=== PATIENT | female | born 1950 | race Caucasian/White ===

== ENCOUNTER 2017-01-16 22:51 | Inpatient (IN) | payer MEDICARE, OTHER ==
[~2017-01-16] VITALS: Ht 165.1 cm; Wt 40.9 kg
[2017-01-16] MEDS ORDERED: ASPI-664 PO (22:58)
--- NOTE | 2017-01-16 23:11 | ERA ---
ER Documentation Chief Complaint Date/Time DATE: 01/16/17 TIME: 23:10 Chief Complaint Generalized body pain HPI The patient is a 66-year-old female, presenting to the ER because of generalized body pain for the last 3 weeks. She complains of dyspnea on exertion. she is having physical therapy 3 times a week for the last year due to generalized weakness. She has felt tired and no energy for the last 3 years. She was recently started on Celexa for depression. She has been drinking for the last couple days, last alcoholic beverage was last night. She denies fever, chills, neck pain, chest pain, dyspnea, abdominal pain, vomiting, dysuria, diarrhea. She used to smoke heavily until 2 years ago, drinks moderately Past medical history: COPD on 2 L nasal cannula continuously, depression Past surgical history: Hysterectomy due to uterine and cervical cancer ROS All systems reviewed and are negative except as per history of present illness. Medications Home Meds Reported Medications Aspirin* (Aspirin* EC) 81 Mg Tablet.dr, 81 MG PO DAILY, TAB 01/16/17 Allergies Allergies: Coded Allergies: Opioids - Morphine Analogues (Unverified Allergy, Unknown, 01/16/17) Opioids-Meperidine and Related (Unverified Allergy, Unknown, 01/16/17) Opioids-Methadone and Related (Unverified Allergy, Unknown, 01/16/17) albuterol (Unverified Allergy, Unknown, 01/16/17) Physical Exam Vitals Vital Signs Date Time Temp Pulse Resp B/P Pulse Ox O2 Delivery O2 Flow Rate FiO2 01/17/17 00:53 105 20 122/80 98 Nasal Cannula 2.0 01/16/17 23:00 97.6 110 23 149/83 92 Physical Exam Const: No acute distress. Head: Atraumatic. Eyes: Normal Conjunctiva. ENT: Normal External Ears, Nose and Mouth. Neck: Full range of motion. No meningismus. Resp: Decreased breath sounds bilateral Cardio: Regular but tachycardic Abd: Soft, non distended, normal bowel sounds, non tender. Skin: No petechiae or rashes. Back: No midline or flank tenderness. Ext: No cyanosis, or edema. Neur: Awake and alert. No focal deficit Psych: Normal Mood and Affect. Result Diagram: 01/16/17 2328 01/16/17 0755 Results 24 hrs Laboratory Tests Test 01/16/17 23:28 01/17/17 00:01 01/17/17 00:04 White Blood Count 8.010^3/ul Red Blood Count 3.4010^6/ul Hemoglobin 10.7g/dl Hematocrit 33.1% Mean Corpuscular Volume 97.4fl Mean Corpuscular Hemoglobin 31.5pg Mean Corpuscular Hemoglobin Concent 32.3g/dl Red Cell Distribution Width 12.5% Platelet Count 45976^3/UL Mean Platelet Volume 10.0fl Neutrophils % 85.7% Lymphocytes % 8.7% Monocytes % 5.0% Eosinophils % 0.2% Basophils % 0.2% Nucleated Red Blood Cells % 0.0/100WBC Neutrophils # 6.910^3/ul Lymphocytes # 0.710^3/ul Monocytes # 0.410^3/ul Eosinophils # 0.010^3/ul Basophils # 0.010^3/ul Nucleated Red Blood Cells # 0.010^3/ul Prothrombin Time 12.0Sec Prothrombin Time Ratio 0.9 INR International Normalized Ratio 0.89 Activated Partial Thromboplast Time 46.9Sec D-Dimer 305.27ng/ml D-Dimer Comment Sodium Level 137mmol/L Potassium Level 3.1mmol/L Chloride Level 90mmol/L Carbon Dioxide Level 38mmol/L Anion Gap 12 Blood Urea Nitrogen 19mg/dl Creatinine 0.39mg/dl Glucose Level 134mg/dl Calcium Level 8.1mg/dl Total Bilirubin 0.5mg/dl Direct Bilirubin 0.00mg/dl Indirect Bilirubin 0.5mg/dl Aspartate Amino Transf (AST/SGOT) 28IU/L Alanine Aminotransferase (ALT/SGPT) 19IU/L Alkaline Phosphatase 73IU/L Total Protein 7.1g/dl Albumin 3.8g/dl Globulin 3.30g/dl Albumin/Globulin Ratio 1.15 Lipase 25U/L Ethyl Alcohol Level < 10.0mg/dl Urine Opiates Screen NEGATIVE Urine Barbiturates NEGATIVE Urine Amphetamines Screen NEGATIVE Urine Benzodiazepines Screen NEGATIVE Urine Cocaine Screen NEGATIVE Urine Cannabinoids NEGATIVE Bedside Urine pH (LAB) 7.0 Bedside Urine Protein (LAB) 2+ Bedside Urine Glucose (UA) Negative Bedside Urine Ketones (LAB) Trace Bedside Urine Blood Trace-lysed Bedside Urine Nitrite (LAB) Negative Bedside Urine Leukocyte Esterase (L Negative Current Medications Medications (Trade) Dose Ordered Sig/Zeyad Route PRN Reason Start Time Stop Time Status Last Admin Dose Admin Potassium Chloride 40 meq 40 meq ONCE ONCE PO 01/17/17 01:41 01/17/17 01:42 DC 01/17/17 01:53 Levofloxacin/ Dextrose (Levaquin 750 Mg/ D5W 150 ml (Pmx)) 150 ml @ 100 mls/hr ONCE ONCE IVPB 01/17/17 03:00 01/17/17 04:29 01/17/17 02:50 Methylprednisolone Sodium Succinate (Solu-Medrol) 125 mg ONCE ONCE IV 01/17/17 03:00 01/17/17 03:01 DC 01/17/17 02:50 Procedures/[place] [id number] Radiology Main Line: [phone] DIAGNOSTIC IMAGING REPORT Patient: ASHISH LIVE : 1950 Age: 66 Sex: F MR #: [id number] DOS: 01/16/17 2320 Ordering MD: GAVIN BARAJAS MD Location: E/R Room/Bed: PROCEDURE: XR Chest. CLINICAL INDICATION: Chest pain. Abdominal pain TECHNIQUE: Portable AP upright view of the chest was obtained. COMPARISON: None. FINDINGS: The cardiomediastinal silhouette is within normal limits. The lungs are clear but markedly hyperinflated, the diaphragm flattened. There is no evidence for pleural effusion, pneumothorax or pulmonary vascular congestion. The osseous structures are intact with no evidence for acute abnormality. Calcification of the aortic arch is seen. No free air seen below the diaphragm. RPTAT:HJJR IMPRESSION: 1. Severe hyperinflation of the lungs compatible with chronic obstructive pulmonary disease without evidence of pneumonia. 2. Aortic atherosclerosis is present. Physician Gayatri Date Time Electronically viewed and signed by Physician Gayatri on 01/17/2017 00:44 JR/ CC: GAVIN BARAJAS MD EKG: Read by emergency physician Rate/Rhythm: Sinus tachycardia 105 beats/min QRS, ST, T-waves: No ST elevation, no T inversion, bilateral atrial enlargement, nonspecific ST and T abnormality Impression: Abnormal EKG MEDICAL MAKING DECISION: The patient is a 65-year-old female, presenting with acute COPD exacerbation, acute hypokalemia, generalized weakness of unclear etiology. She was treated with potassium chloride 40 mg p.o. for low potassium , Levaquin IV and Solu-Medrol IV for acute COPD exacerbation The differential diagnoses considered include but are not limited to asthma, COPD, pneumonia, pulmonary embolus, pleural effusion, congestive heart failure. Departure Diagnosis: Primary Impression: COPD exacerbation Additional Impressions: Hypokalemia Anemia Condition: Stable Comments I discussed the findings with the patient. I discussed the patient with the on- call hospitalist Dr. Sanchez who was made aware of the lab, the treatment, the patient condition. The patient is admitted to telemetry at 2:30 AM The patient's blood pressure was elevated (>120/80) but appears stable without evidence of hypertension emergency or urgency. The patient was counseled about the risks of hypertension and urged to pursue outpatient monitoring and therapy within a week with their primary care physician. GAVIN BARAJAS MD Jan 16, 2017 23:11 GAVIN BARAJAS MD Jan 16, 2017 23:11
[2017-01-16 23:55] LABS: ADD SCAN DIFF NO
[2017-01-16 23:56] LABS: BASOPHILS % 0.2 % (0.0-2.0); EOSINOPHILS % 0.2 % (0.0-7.0); HEMATOCRIT 33.1 % (37.0-47.0); HEMOGLOBIN 10.7 g/dl (12.0-16.0); LYMPHOCYTES # 0.7 10^3/ul (0.8-2.9); LYMPHOCYTES % 8.7 % (15.0-51.0); MEAN CORPUSCULAR HEMOGLOBIN 31.5 pg (29.0-33.0); MEAN CORPUSCULAR HGB CONC 32.3 g/dl (32.0-37.0); MEAN CORPUSCULAR VOLUME 97.4 fl (82.0-101.0); MONOCYTE # 0.4 10^3/ul (0.3-0.9); NEUTROPHIL # 6.9 10^3/ul (1.6-7.5); NEUTROPHILS % 85.7 % (39.0-77.0); PLATELET COUNT 232 10^3/UL (140-415); RED CELL DISTRIBUTION WIDTH 12.5 % (11.5-14.5)
[2017-01-17] VITALS (10 sets, daily range): BP systolic 102–112; BP diastolic 59–65; PULSE 90–107; RESP 16–20; Ht 165.1 cm; Wt 40.9 kg
[2017-01-17 00:04] LABS: URINE BLOOD (Dip) POC Trace-lysed (NEGATIVE)
[2017-01-17 00:08] LABS: INR 0.89; PT RATIO 0.9
[2017-01-17 00:11] LABS: ALBUMIN 3.8 g/dl (3.3-4.9); CHLORIDE 90 mmol/L (97-110); SODIUM 137 mmol/L (135-144)
[2017-01-17 00:12] LABS: D-DIMER 305.27 ng/ml (<460); POTASSIUM 3.1 mmol/L (3.5-5.1)
[2017-01-17 00:13] LABS: CREATININE 0.39 mg/dl (0.44-1.00)
[2017-01-17 00:14] LABS: ALANINE AMINOTRANSFERASE 19 IU/L (13-69); ALBUMIN/GLOBULIN RATIO 1.15; ALKALINE PHOSPHATASE 73 IU/L (42-121); ANION GAP 12 (8-16); ASPARTATE AMINO TRANSFERASE 28 IU/L (15-46); BILIRUBIN,INDIRECT 0.5 mg/dl (0-1.1); BILIRUBIN,TOTAL 0.5 mg/dl (0.2-1.3); BLOOD UREA NITROGEN 19 mg/dl (7-20); CALCIUM 8.1 mg/dl (8.4-10.2); CARBON DIOXIDE 38 mmol/L (21-31); GLUCOSE 134 mg/dl (70-220); TOTAL PROTEIN 7.1 g/dl (6.1-8.1)
[2017-01-17 00:17] LABS: ETHANOL < 10.0 mg/dl; PARTIAL THROMBOPLASTIN TIME 46.9 Sec (25.0-35.0)
[2017-01-17 00:39] LABS: BARBITURATES NEGATIVE (NEGATIVE); BENZODIAZEPINES NEGATIVE (NEGATIVE); CANNABINOIDS NEGATIVE (NEGATIVE); COCAINE NEGATIVE (NEGATIVE); OPIATES NEGATIVE (NEGATIVE)
--- NOTE | 2017-01-17 00:45 | RADRPT ---
PROCEDURE: XR Chest. CLINICAL INDICATION: Chest pain. Abdominal pain TECHNIQUE: Portable AP upright view of the chest was obtained. COMPARISON: None. FINDINGS: The cardiomediastinal silhouette is within normal limits. The lungs are clear but markedly hyperinf lated, the diaphragm flattened. There is no evidence for pleural effusion, pneumothorax or pulmonar y vascular congestion. The osseous structures are intact with no evidence for acute abnormality. Ca lcification of the aortic arch is seen. No free air seen below the diaphragm. RPTAT:HJJR IMPRESSION: 1. Severe hyperinflation of the lungs compatible with chronic obstructive pulmonary disease without evidence of pneumonia. 2. Aortic atherosclerosis is present. Physician Gayatri Date Time Electronically viewed and signed by Physician Gayatri on 01/17/2017 00:44 /
[2017-01-17] MEDS ORDERED: POTASSIUM CHLORIDE (SR) 20 MEQ TAB PO ONE (01:41)
[2017-01-17] MEDS ORDERED: METHYLPREDNISOLONE 125 MG INJ IV ONE (03:00)
[2017-01-17] MEDS ORDERED: LEVOFLOXACIN 750MG/D5W (PMX) 150 ML IVPB ONE (03:00)
[2017-01-17] MEDS ORDERED: ONDANSETRON 4 MG INJ ONE (04:22)
[2017-01-17] MEDS ORDERED: LORAZEPAM 0.5 MG TAB PO ONE (04:30)
[2017-01-17] MEDS ORDERED: ACETAMINOPHEN 325 MG TAB PO PRN (04:30)
[2017-01-17] MEDS ORDERED: NACL 0.9% 3 ML SYG IV SCH (04:30)
[2017-01-17] MEDS ORDERED: ONDANSETRON 4 MG INJ IV PRN (04:30)
[2017-01-17] MEDS ORDERED: IPRATROPIUM (NEB) 0.5 MG/2.5 ML AMP HHN PRN (04:30)
[2017-01-17] MEDS ORDERED: ONDANSETRON 4 MG INJ IV ONE (04:35)
[2017-01-17] MEDS: KETOROLAC 30 MG INJ IV SCH ×4 (04:44→22:20)
--- NOTE | 2017-01-17 07:35 | HP ---
DATE OF ADMISSION: 01/17/2017 TIME SEEN: 4:00 a.m. CHIEF COMPLAINT: Generalized body pain and shortness of breath. HISTORY OF PRESENT ILLNESS: The patient is a 66-year-old female with a history of COPD on home oxygen, uterine and cervical cancer at age of 34 status post surgery, and depression who presented to the emergency department with the above stated chief complaint. She stated she has been experiencing generalized weakness and lack of energy for a few years now and actually has been receiving physical therapy a few days a week. She stated her current generalized weakness has been progressively getting worse for the past 2 weeks or so. She also reported shortness of breath worse on exertion. She has a heavy smoking history, but she quit about 2 years ago. She denied any chest pain, fever, chills, nausea, vomiting. she said, 3 years ago she lost significant weight from 110 to 68 and since then her body has been weak. When she presented to the ER, blood pressure was 149/83, heart rate 110, respiratory rate 23, temperature 97.6, oxygen saturation 92% on room air which increased to 98% on 2 liters. Laboratory shows a potassium of 3.1, chloride 90 , bicarbonate 38, hemoglobin 10.7. Otherwise, CBC and CMP are within normal limits. Chest x-ray shows severe hyperinflation of the lungs. The patient received 125 mg of Solu-Medrol, Levaquin and her potassium was replaced. REVIEW OF SYSTEMS: A 12-point review of systems was performed and negative except as mentioned in the HPI. PAST MEDICAL HISTORY: As per HPI. PAST SURGICAL HISTORY: Uterine and cervical surgery for cancer. SOCIAL HISTORY: A history of heavy smoking until 2 years ago. She has been drinking on a daily basis recently especially for the past few days. She denied a history of illicit drug use. ALLERGIES: 1. MORPHINE. 2. MEPERIDINE. 3. METHADONE. 4. ALBUTEROL. PHYSICAL EXAMINATION: VITAL SIGNS: Blood pressure 108/76, heart rate 111, respiratory rate 24, temperature earlier was 97.6, oxygen saturation 94% on 2 liters. GENERAL: very thin, frail looking She is lying in bed without respiratory distress. HEENT: No obvious head deformity. Pupils are reactive to light. Extraocular muscles intact. CARDIOVASCULAR: Tachycardic, regular rhythm. CHEST: Severe Barrel chest with significant anterior chest protruding LUNGS: Scattered wheezing. ABDOMEN: Soft, nontender, nondistended. Positive bowel sounds. EXTREMITIES: No edema. NEUROLOGIC: No focal deficits. LABORATORY DATA: Pertinent positives as mentioned in the HPI. IMAGING: Chest x-ray shows severely hyperinflated lungs. IMPRESSION: 1. Chronic obstructive pulmonary disease exacerbation. 2. Chronic generalized weakness. 3. Hypokalemia. 4. Normocytic anemia, likely anemia of chronic disease. 5. History of uterine and cervical cancer status post surgery. 6. Depression: was started Celexa 2 days ago PLAN: She will receive breathing treatments but notes that she does have an allergy to albuterol. She will also be treated with Solu-Medrol. We will place a pulmonary consult. As far as her generalized weakness is concerned, this has been going on for a few years and currently she has been having physical therapy a few days a week. We will continue physical therapy while she is in the hospital. I will check her thyroid function. I will order a pelvic ultrasound to see if there is any sign of recurrence of her cancer. We will also send ferritin, iron profile as well as an FOBT to workup her anemia. Further workup and management will be per clinical course. Dictated By: DIONISIO NUNO/ALYCE Conf#: [id number] DID#: [id number] JORJE
[2017-01-17] MEDS: ASPIRIN 81 MG TAB PO SCH (08:09)
[2017-01-17] MEDS: HEPARIN 5,000 UNIT/0.5 ML VIAL SC SCH ×2 (08:15→21:09)
[2017-01-17] MEDS ORDERED: MONTELUKAST 10 MG TAB PO ONE (08:30)
[2017-01-17] MEDS ORDERED: METHYLPREDNISOLONE 125 MG INJ IV SCH (09:00)
[2017-01-17 10:42] LABS: ADD SCAN DIFF NO
[2017-01-17] MEDS: MOMETASONE 0.24 GM INHALER INH SCH ×2 (10:49→20:57)
[2017-01-17] MEDS: TIOTROPIUM 18 MCG CAPSULE INHA DEV INH SCH (10:49)
[2017-01-17 10:55] LABS: ABNORMAL IP MESSAGE 1; HEMATOCRIT 33.2 % (37.0-47.0); HEMOGLOBIN 10.4 g/dl (12.0-16.0); MEAN CORPUSCULAR HEMOGLOBIN 30.8 pg (29.0-33.0); MEAN CORPUSCULAR HGB CONC 31.3 g/dl (32.0-37.0); MEAN CORPUSCULAR VOLUME 98.2 fl (82.0-101.0); MEAN PLATELET VOLUME 10.7 fl (7.4-10.4); PLATELET COUNT 236 10^3/UL (140-415); RED BLOOD COUNT 3.38 10^6/ul (4.20-5.40); RED CELL DISTRIBUTION WIDTH 12.5 % (11.5-14.5); WHITE BLOOD COUNT 5.7 10^3/ul (4.8-10.8)
[2017-01-17 11:14] LABS: ALBUMIN 3.8 g/dl (3.3-4.9)
[2017-01-17 11:15] LABS: POTASSIUM 3.7 mmol/L (3.5-5.1)
[2017-01-17 11:17] LABS: ALBUMIN/GLOBULIN RATIO 1.15; BILIRUBIN,INDIRECT 0.4 mg/dl (0-1.1); BILIRUBIN,TOTAL 0.4 mg/dl (0.2-1.3); CREATININE 0.45 mg/dl (0.44-1.00); TOTAL PROTEIN 7.1 g/dl (6.1-8.1)
[2017-01-17 11:18] LABS: CALCIUM 8.3 mg/dl (8.4-10.2); MAGNESIUM 1.4 mg/dl (1.7-2.5)
[2017-01-17] MEDS ORDERED: predniSONE 20 MG TAB PO ONE (12:00)
--- NOTE | 2017-01-17 12:00 | CONS ---
Date/Time of Note Date/Time of Note DATE: 01/17/17 TIME: 11:57 Assessment/Plan Assessment/Plan Additional Assessment/Plan Chest x-ray was reviewed from yesterday which is showing severe emphysematous changes without any acute infiltrates. Assessment recommendations; 1. Patient admitted for generalized weakness with possibly superimposed bronchitis. 2. Advanced COPD. 3. Remote history of uterine cancer. 4. History of anxiety. Discontinue Solu-Medrol. Start the patient on prednisone 10 mg twice daily. Continue current bronchodilator regimen. Obtain a blood gas on 2 L nasal cannula. Consultation Date/Type/Reason Admit Date/Time Jan 17, 2017 at 02:44 Date of Consultation: Jan 17, 2017 Type of Consultation: Pulmonary Reason for Consultation Pulmonary consultations requested for evaluation of COPD. History presenting any; patient is a pleasant 66-year-old white lady who came into the hospital yesterday with complaints of not feeling well for the last several weeks. Patient has been complaining of very mild chest congestion without any associated wheezing any fever or chills. Patient also denies having any chest pain. Does complain of generalized weakness. Past medical history; 1. Patient with a history of severe COPD. 2. Anxiety and depression. 3. History of uterine cancer. 4. Patient does have home oxygen. Medications; were reviewed. Allergies; opioids. Social history; patient quit smoking 2 years ago has a long-standing history of heavy smoking. Family history; patient is , does not have any children. Occupational history; patient used to work in grocery stores. Review of systems; denies any headache, visual changes, sinus symptoms. Any seizures. Denies any dysphagia, sore throat or odynophagia. Denies any chest pain, angina, wheezing. Complains of scant chest congestion. Denies any hemoptysis. Denies any abdominal pain, nausea vomiting. Any melena or hematochezia. Has lost some weight recently. Does complain of dyspnea on exertion. Denies any skin changes any new arthritis symptoms. General exam; elderly lady appears quite emaciated, currently in no distress, awake alert. Exam/Review of Systems Vital Signs Vitals Vital Signs Date Time Temp Pulse Resp B/P Pulse Ox O2 Delivery O2 Flow Rate FiO2 01/17/17 11:29 98.0 102 18 108/65 93 01/17/17 06:15 Nasal Cannula 2.0 Exam HEENT examination; supple neck, no JVD. No lymphadenopathy. Midline trachea. No thyromegaly. Pharynx is clear. Patient is edentulous. Pupils are midsize and reactive to light. Chest examination; diminished but clear breath sound. S1-S2 audible, no murmurs. Regular rhythm. Abdomen examination; soft, scaphoid, no organomegaly. Nontender. Bowel sounds audible. Extremity examination; no peripheral edema. Pulses 1+ bilaterally. No clubbing. ROUTE CLERK examination; cranial nerves are grossly intact, no motor deficit. Results Result Diagram: 01/17/1793901/17/17939 Results 24 hrs Laboratory Tests Test 01/16/17 23:28 01/17/17 00:01 01/17/17 00:04 01/17/17 09:40 White Blood Count 8.0 5.7 # Red Blood Count 3.40 L 3.38 L Hemoglobin 10.7 L 10.4 L Hematocrit 33.1 L 33.2 L Mean Corpuscular Volume 97.4 98.2 Mean Corpuscular Hemoglobin 31.5 30.8 Mean Corpuscular Hemoglobin Concent 32.3 31.3 L Red Cell Distribution Width 12.5 12.5 Platelet Count 232 236 Mean Platelet Volume 10.0 10.7 H Neutrophils % 85.7 H Lymphocytes % 8.7 L Monocytes % 5.0 Eosinophils % 0.2 Basophils % 0.2 Nucleated Red Blood Cells % 0.0 Neutrophils # 6.9 Lymphocytes # 0.7 L Monocytes # 0.4 Eosinophils # 0.0 Basophils # 0.0 Nucleated Red Blood Cells # 0.0 Prothrombin Time 12.0 L Prothrombin Time Ratio 0.9 INR International Normalized Ratio 0.89 Activated Partial Thromboplast Time 46.9 H D-Dimer 305.27 D-Dimer Comment Sodium Level 137 136 Potassium Level 3.1 L 3.7 Chloride Level 90 L 90 L Carbon Dioxide Level 38 H 34 H Anion Gap 12 16 Blood Urea Nitrogen 19 16 Creatinine 0.39 L 0.45 Glucose Level 134 149 Calcium Level 8.1 L 8.3 L Total Bilirubin 0.5 0.4 Direct Bilirubin 0.00 0.00 Indirect Bilirubin 0.5 0.4 Aspartate Amino Transf (AST/SGOT) 28 29 Alanine Aminotransferase (ALT/SGPT) 19 18 Alkaline Phosphatase 73 72 Total Protein 7.1 7.1 Albumin 3.8 3.8 Globulin 3.30 H 3.30 H Albumin/Globulin Ratio 1.15 1.15 Lipase 25 Ethyl Alcohol Level < 10.0 Urine Opiates Screen NEGATIVE Urine Barbiturates NEGATIVE Urine Amphetamines Screen NEGATIVE Urine Benzodiazepines Screen NEGATIVE Urine Cocaine Screen NEGATIVE Urine Cannabinoids NEGATIVE Bedside Urine pH (LAB) 7.0 Bedside Urine Protein (LAB) 2+ H Bedside Urine Glucose (UA) Negative Bedside Urine Ketones (LAB) Trace H Bedside Urine Blood Trace-lysed H Bedside Urine Nitrite (LAB) Negative Bedside Urine Leukocyte Esterase (L Negative Magnesium Level 1.4 L Medications Medications Current Medications Ondansetron HCl (Zofran Inj) 4 mg Q6H PRN IV NAUSEA AND/OR VOMITING; Start at 04:30 Aspirin (Aspirin) 81 mg DAILY PO Last administered on 01/17/17 08:09; Admin Dose 81 MG; Start 01/17/17 at 09:00 Acetaminophen (Tylenol Tab) 650 mg Q6H PRN PO PAIN LEVEL 1-3 OR FEVER; Start at 04:30 Heparin Sodium (Porcine) (Heparin (5000 Units/0.5 ml)) 5,000 unit Q12 SC Last administered on 01/17/17 08:15; Admin Dose 5,000 UNIT; Start 01/17/17 at 09:00 Methylprednisolone Sodium Succinate (Solu-Medrol) 60 mg Q12 IV Last administered on 01/17/17 08:09; Admin Dose 60 MG; Start 01/17/17 at 09:00 Ketorolac Tromethamine (Toradol) 30 mg Q6H IV Last administered on 01/17/17 10 :49; Admin Dose 30 MG; Start 01/17/17 at 04:30; Stop 01/20/17 at 04:29 Tiotropium [place] (Spiriva) 1 inh DAILY INH Last administered on 01/17/17 10: 49; Admin Dose 1 INH; Start 01/17/17 at 09:00 Mometasone Furoate (Asmanex) 1 puff BID INH Last administered on 01/17/17 10: 49; Admin Dose 1 PUFF; Start 01/17/17 at 09:00 Montelukast Sodium (Singulair) 10 mg HS PO ; Start 01/17/17 at 21:00 ITZ COVARRUBIAS Jan 17, 2017 12:00
[2017-01-17 13:08] LABS: LYMPHOCYTES # 0.6 10^3/ul (0.8-2.9); NEUTROPHIL # 4.9 10^3/ul (1.6-7.5)
[2017-01-17 13:09] LABS: PLATELET ESTIMATE PLT APPEAR ADEQUATE
[2017-01-17 15:38] LABS: AADO2 Arterial 33.3 mmHg (7.0-24.0); Allen Test ACCEPTAB; Arterial Base Excess 9.1 mmol/L (-3.0-3); Arterial COHb 0.3 % (0.0-3.0); Arterial Fraction of Oxyhgb 93.8 % (93.0-99.0); Arterial HCO3 37.2 mmol/L (22.0-26.0); Arterial MetHb 0.4 % (0.0-1.5); Arterial Total Hemglobin 11.7 g/dl (12.0-18.0); MODE NASAL CANNULA
--- NOTE | 2017-01-17 17:24 | RADRPT ---
Echocardiogram Report Patient Name: ASHISH LIVE Gender: Female Date: 1950 Study Date: 17-Jan-2017 Spray Applicator: MANDI Location: I Ref. Physician: DIONISIO LORA Quality: Technically Difficult Study Procedures: Transthoracic echocardiogram with 2D, M-Mode, and Doppler examination. Indications: Shortness of breath. 2D/M Mode Doppler Measurement Value Normal Ranges Measurement Value Normal Ranges AoR Diam MM 2.7 cm AV Peak Jean-Pierre 1.1 m/sec ACS MM 1.8 cm AV Peak PG 5.1 mmHg LVIDd 2D 3.5 3.5 - 5.6 cm LVOT Peak Jean-Pierre 0.9 m/sec LVIDs 2D 2.2 2.1 - 4.1 cm LVOT Peak PG 3.2 mmHg LVPWd 2D 0.8 0.6 - 1.1 cm MV E Peak Jean-Pierre 0.6 m/sec IVSd 2D 0.8 0.6 - 1.1 cm MV A Peak Jean-Pierre 0.7 m/sec EDV 2D 49.9 cm3 MV E/A 0.8 ESV 2D 10.7 cm3 MV Decel Time 187 msec LA Dimen 2D 2.4 2.3 - 4.0 cm MV Decel [place] 3 MV E/A 0.8 Findings Left Ventricle: Overall, normal left ventricular systolic function. Not all segments visualized, TDS apicals. Normal left ventricular cavity size. Normal left ventricular wall thickness. Ejection fraction is visually estimated at 6065 %. Tissue Doppler/Mitral Doppler indices are consistent with impaired relaxation (Stage I diastolic dysfunction). E/E`=5. Right Ventricle: Normal right ventricular size. Normal right ventricular systolic function. Left Atrium: The left atrium is normal in size. Right Atrium: The right atrium is normal in size. Atrial Septum: Normal atrial septum. Mitral Valve: Normal appearance of the mitral valve. Mild mitral annular calcification. Trace mitral regurgitation. Aortic Valve: Normal appearance of the aortic valve. No significant aortic stenosis or insufficiency. Tricuspid Valve: Normal appearance of the tricuspid valve. Estimated peak PA systolic pressure 33 mmHg. There is trace to mild tricuspid regurgitation. Pulmonic Valve: Pulmonic valve not well visualized. No obvious evidence of pulmonic regurgitation. Pericardium: Normal pericardium with no significant pericardial effusion. Aorta: Normal aortic root. IVC: Normal size and normal respiratory collapse consistent with normal right atrial pressure. Pulmonary Artery: Not well visualized. Conclusions 1.Overall, normal left ventricular systolic function. Not all segments visualized, TDS apicals. Normal left ventricular cavity size. Normal left ventricular wall thickness. Ejection fraction is visually estimated at 60-65 %. Tissue Doppler/Mitral Doppler indices are consistent with impaired relaxation (Stage I diastolic dysfunction). E/E`=5. 2.Normal appearance of the mitral valve. Mild mitral annular calcification. Trace mitral regurgitation. 3.Normal appearance of the tricuspid valve. Estimated peak PA systolic pressure 33 mmHg. There is trace to mild tricuspid regurgitation. Electronically Signed By: Delon Silverio 17-Jan-2017 17:24:12 -0700 Patient Name: ASHISH LIVE Study Date: 17-Jan-2017 [id number]
[2017-01-17 20:26] LABS: ADD UMIC NO; URINE BILIRUBIN (Dip) NEGATIVE (NEGATIVE); URINE BLOOD (Dip) NEGATIVE (NEGATIVE); URINE COLOR LT. YELLOW (YELLOW); URINE GLUCOSE (Dip) NEGATIVE (NEGATIVE); URINE KETONES (Dip) NEGATIVE (NEGATIVE); URINE LEUKOCYTE ESTERASE (Dip) NEGATIVE (NEGATIVE); URINE NITRITE (Dip) NEGATIVE (NEGATIVE); URINE TOTAL PROTEIN (Dip) NEGATIVE (NEGATIVE); URINE UROBILINOGEN (Dip) 0.2 E.U./dL (0.1-1.0)
[2017-01-17] MEDS ORDERED: MAGNESIUM SULFATE 3 GM in SOD CHLORIDE 0.9% 100 ML IVPB ONE (20:30)
[2017-01-17] MEDS ORDERED: MONTELUKAST 10 MG TAB PO SCH (21:00)
[2017-01-17] MEDS ORDERED: CITALOPRAM 20 MG TAB PO SCH ×2 (21:00)
[2017-01-17] MEDS ORDERED: CITA10TA72 PO (22:29)
[2017-01-18] VITALS (8 sets, daily range): BP systolic 107–138; BP diastolic 53–85; PULSE 78–88; RESP 16–20
[2017-01-18] MEDS: KETOROLAC 30 MG INJ IV SCH ×2 (04:47→10:04)
[2017-01-18 06:49] LABS: ADD SCAN DIFF NO
[2017-01-18 06:57] LABS: BASOPHILS % 0.1 % (0.0-2.0); HEMATOCRIT 33.1 % (37.0-47.0); HEMOGLOBIN 10.4 g/dl (12.0-16.0); LYMPHOCYTES # 1.4 10^3/ul (0.8-2.9); LYMPHOCYTES % 18.9 % (15.0-51.0); MEAN CORPUSCULAR HEMOGLOBIN 30.6 pg (29.0-33.0); MEAN CORPUSCULAR HGB CONC 31.4 g/dl (32.0-37.0); MEAN CORPUSCULAR VOLUME 97.4 fl (82.0-101.0); MEAN PLATELET VOLUME 10.2 fl (7.4-10.4); MONOCYTE # 0.7 10^3/ul (0.3-0.9); MONOCYTES % 9.4 % (0.0-11.0); NEUTROPHIL # 5.4 10^3/ul (1.6-7.5); NEUTROPHILS % 71.3 % (39.0-77.0); PLATELET COUNT 239 10^3/UL (140-415); RED CELL DISTRIBUTION WIDTH 12.2 % (11.5-14.5); WHITE BLOOD COUNT 7.6 10^3/ul (4.8-10.8)
--- NOTE | 2017-01-18 07:04 | PDOCDIS ---
Discharge Instructions DIAGNOSIS Discharge Diagnosis: End-stage COPD; dysthymia CONDITION Patient Condition: Fair HOME CARE INSTRUCTIONS: Special Diet: Regular ACTIVITY: Activity Restrictions: Slowly Increase Activity Do not operate Machinery Do not operate Power Tool FOLLOW UP/APPOINTMENTS Appointments With primary care physician, Dr. Jet Og or Dr. Eduardo in 1-2 weeks ELISEO EDUARDO MD Jan 18, 2017 07:04
[2017-01-18] MEDS ORDERED: MONT10TA24 PO (07:06)
--- NOTE | 2017-01-18 07:11 | PN ---
Date/Time of Note Date/Time of Note DATE: 01/18/17 TIME: 07:08 Assessment/Plan VTE Prophylaxis VTE Prophylaxis Intervention: heparin Lines/Catheters IV [facility]ter [facility]from [facility] [place] [facility] Urinary Cath still in place: No Assessment/Plan Problems: (1) Hypokalemia Status: Resolved Comment: Resolved (2) Anemia Status: Acute Comment: Noted. She is stable and is able to be discharged and followed up as an outpatient. Qualifiers: Anemia type: unspecified type Qualified Code: D64.9 - Anemia, unspecified type (3) COPD exacerbation Status: Acute Comment: This is improved nicely. She is now on more mainstream COPD therapeutics. Is my opinion she is ready to be discharged however I am going to make sure she is tolerating everything of that the pulmonary consult agrees. And for after noon discharge today (4) Mild late onset dysthymic disorder, in partial remission, with anxious distress, with intermittent major depressive episodes, without current episode Status: Chronic Comment: On medication therapy Subjective 24 Hr Interval Summary Free Text/Dictation Patient has improved nicely. Constitutional: no complaints (No fevers chills or sweats) Respiratory: cough, shortness of breath (Baseline shortness of breath persists but is actually improved denies wheezing) Cardiovascular: no complaints Gastrointestinal: no complaints Genitourinary: no complaints Musculoskeletal: neck pain Exam/Review of Systems Vital Signs Vitals Vital Signs Date Time Temp Pulse Resp B/P Pulse Ox O2 Delivery O2 Flow Rate FiO2 01/18/17 06:50 98.2 84 18 107/66 93 01/18/17 02:44 2.0 01/17/17 20:00 Nasal Cannula Intake and Output 01/17/17 01/17/17 01/18/17 15:00 23:00 07:00 Intake Total 400 ml 506 ml Balance 400 ml 506 ml Exam Constitutional: alert, oriented Neck: non-tender, supple Respiratory: diminished breath sounds, wheezing (Wheezing is improved) Cardiovascular: nl pulses, regular rate and rhythm Gastrointestinal: nl liver, spleen, non-tender, soft Results Result Diagram: 01/17/17 0940 01/17/17 0940 Results 24 hrs Laboratory Tests Test 01/17/17 09:40 01/17/17 15:55 White Blood Count 5.7 # Red Blood Count 3.38 L Hemoglobin 10.4 L Hematocrit 33.2 L Mean Corpuscular Volume 98.2 Mean Corpuscular Hemoglobin 30.8 Mean Corpuscular Hemoglobin Concent 31.3 L Red Cell Distribution Width 12.5 Platelet Count 236 Mean Platelet Volume 10.7 H Neutrophils % 86.0 H Band Neutrophils % 2.0 Lymphocytes % 11.0 L Reactive Lymphocytes % 1.0 Monocytes % Neutrophils # 4.9 Lymphocytes # 0.6 L Monocytes # Platelet Estimate PLT APPEAR ADEQUATE Sodium Level 136 Potassium Level 3.7 Chloride Level 90 L Carbon Dioxide Level 34 H Anion Gap 16 Blood Urea Nitrogen 16 Creatinine 0.45 Glucose Level 149 Calcium Level 8.3 L Magnesium Level 1.4 L Total Bilirubin 0.4 Direct Bilirubin 0.00 Indirect Bilirubin 0.4 Aspartate Amino Transf (AST/SGOT) 29 Alanine Aminotransferase (ALT/SGPT) 18 Alkaline Phosphatase 72 Total Protein 7.1 Albumin 3.8 Globulin 3.30 H Albumin/Globulin Ratio 1.15 Random Cortisol 33.3 Urine Color LT. YELLOW Urine Clarity CLEAR Urine pH 6.0 Urine Specific [place] 1.025 Urine Ketones NEGATIVE Urine Nitrite NEGATIVE Urine Bilirubin NEGATIVE Urine Urobilinogen 0.2 E.U./dL Urine Leukocyte Esterase NEGATIVE Urine Hemoglobin NEGATIVE Urine Glucose NEGATIVE Urine Total Protein NEGATIVE Medications Medications Current Medications Ondansetron HCl (Zofran Inj) 4 mg Q6H PRN IV NAUSEA AND/OR VOMITING; Start at 04:30 Aspirin (Aspirin) 81 mg DAILY PO Last administered on 01/17/17 08:09; Admin Dose 81 MG; Start 01/17/17 at 09:00 Acetaminophen (Tylenol Tab) 650 mg Q6H PRN PO PAIN LEVEL 1-3 OR FEVER; Start at 04:30 Heparin Sodium (Porcine) (Heparin (5000 Units/0.5 ml)) 5,000 unit Q12 SC Last administered on 01/17/17 21:09; Admin Dose 5,000 UNIT; Start 01/17/17 at 09:00 Ketorolac Tromethamine (Toradol) 30 mg Q6H IV Last administered on 01/18/17 04 :47; Admin Dose 30 MG; Start 01/17/17 at 04:30; Stop 01/20/17 at 04:29 Tiotropium [place] (Spiriva) 1 inh DAILY INH Last administered on 01/17/17 10: 49; Admin Dose 1 INH; Start 01/17/17 at 09:00 Mometasone Furoate (Asmanex) 1 puff BID INH Last administered on 01/17/17 20: 57; Admin Dose 1 PUFF; Start 01/17/17 at 09:00 Montelukast Sodium (Singulair) 10 mg HS PO Last administered on 01/17/17 20:57 ; Admin Dose 10 MG; Start 01/17/17 at 21:00 Citalopram Hydrobromide (Celexa) 10 mg HS PO Last administered on 01/17/17 20: 57; Admin Dose 10 MG; Start 01/17/17 at 21:00 ELISEO SHORE MD Jan 18, 2017 07:11
[2017-01-18 07:19] LABS: POTASSIUM 4.1 mmol/L (3.5-5.1)
[2017-01-18 07:22] LABS: CREATININE 0.47 mg/dl (0.44-1.00)
[2017-01-18 07:23] LABS: CALCIUM 7.5 mg/dl (8.4-10.2); MAGNESIUM 2.9 mg/dl (1.7-2.5); PHOSPHORUS 2.8 mg/dl (2.5-4.9)
[2017-01-18] MEDS ORDERED: MAGNESIUM HYDROXIDE 30ML CUP PO ONE (07:30)
[2017-01-18] MEDS: ASPIRIN 81 MG TAB PO SCH (08:13)
[2017-01-18] MEDS: HEPARIN 5,000 UNIT/0.5 ML VIAL SC SCH (08:20)
[2017-01-18] MEDS ORDERED: DOCUSATE SODIUM 250 MG CAP PO SCH (09:00)
[2017-01-18] MEDS ORDERED: SALMETEROL/FLUTICASONE 250/50 INHA INH SCH (09:00)
[2017-01-18] MEDS: TIOTROPIUM 18 MCG CAPSULE INHA DEV INH SCH (10:04)
[2017-01-18] MEDS ORDERED: ADV25050 INH (12:14)
--- NOTE | 2017-01-18 12:21 | DS ---
Date/Time of Note Date/Time of Note DATE: 01/18/17 TIME: 12:18 Discharge Summary Admission/Discharge Info Admit Date/Time Jan 17, 2017 at 02:44 Discharge Date/Time 01/18/2017 Final Diagnosis COPD exacerbation; anemia; dysthymia Patient Condition: Fair Consults Pulmonology Procedures EchocardiogramConclusions 1. Overall, normal left ventricular systolic function. Not all segments visualized, TDS apicals. Normal left ventricular cavity size. Normal left ventricular wall thickness. Ejection fraction is visually estimated at 60-65 %. Tissue Doppler/Mitral Doppler indices are consistent with impaired relaxation (Stage I diastolic dysfunction). E/E`=5. 2. Normal appearance of the mitral valve. Mild mitral annular calcification. Trace mitral regurgitation. 3. Normal appearance of the tricuspid valve. Estimated peak PA systolic pressure 33 mmHg. There is trace to mild tricuspid regurgitation. Hx of Present Illness HISTORY OF PRESENT ILLNESS: The patient is a 66-year-old female with a history of COPD on home oxygen, uterine and cervical cancer at age of 34 status post surgery, and depression who presented to the emergency department with the above stated chief complaint. She stated she has been experiencing generalized weakness and lack of energy for a few years now and actually has been receiving physical therapy a few days a week. She stated her current generalized weakness has been progressively getting worse for the past 2 weeks or so. She also reported shortness of breath worse on exertion. She has a heavy smoking history, but she quit about 2 years ago. She denied any chest pain, fever, chills, nausea, vomiting. she said, 3 years ago she lost significant weight from 110 to 68 and since then her body has been weak. When she presented to the ER, blood pressure was 149/83, heart rate 110, respiratory rate 23, temperature 97.6, oxygen saturation 92% on room air which increased to 98% on 2 liters. Laboratory shows a potassium of 3.1, chloride 90 , bicarbonate 38, hemoglobin 10.7. Otherwise, CBC and CMP are within normal limits. Chest x-ray shows severe hyperinflation of the lungs. The patient received 125 mg of Solu-Medrol, Levaquin and her potassium was replaced. Hospital Course 66-year-old female with advanced COPDa pink puffer. She had not been on any type of maintenance medications as an outpatient. She was placed on Spiriva and Advair in the hospital which she tolerated well. She is improved significantly as compared to the time of admission is now stable for discharge. She will follow-up with the outpatient physician in 1 week. Home Meds Active Scripts Salmeterol Xinaf/Fluticasone* (Advair*) 250-50 Diskus Inhaler, 1 INH INH BID for 30 Days, 2 Refills Prov:ELISEO SHORE MD 01/18/17 Reported Medications Citalopram Hydrobromide* (Celexa*) 10 Mg Tablet, 10 MG PO HS, #30 TAB 01/17/17 Aspirin* (Aspirin* EC) 81 Mg Tablet.dr, 81 MG PO DAILY, TAB 01/16/17 Pending Labs Laboratory Tests Test 01/17/17 15:55 01/18/17 06:09 Urine Color LT. YELLOW (YELLOW) Urine Clarity CLEAR (CLEAR) Urine pH 6.0 (5.0-9.0) Urine Specific [place] 1.025 (1.003-1.030) Urine Ketones NEGATIVE (NEGATIVE) Urine Nitrite NEGATIVE (NEGATIVE) Urine Bilirubin NEGATIVE (NEGATIVE) Urine Urobilinogen 0.2 E.U./dL (0.1-1.0) Urine Leukocyte Esterase NEGATIVE (NEGATIVE) Urine Hemoglobin NEGATIVE (NEGATIVE) Urine Glucose NEGATIVE% (NEGATIVE) Urine Total Protein NEGATIVE (NEGATIVE) White Blood Count 7.610^3/ul (4.8-10.8) Red Blood Count 3.4010^6/ul (4.20-5.40) Hemoglobin 10.4g/dl (12.0-16.0) Hematocrit 33.1% (37.0-47.0) Mean Corpuscular Volume 97.4fl (82.0-101.0) Mean Corpuscular Hemoglobin 30.6pg (29.0-33.0) Mean Corpuscular Hemoglobin Concent 31.4g/dl (32.0-37.0) Red Cell Distribution Width 12.2% (11.5-14.5) Platelet Count 53533^3/UL (140-415) Mean Platelet Volume 10.2fl (7.4-10.4) Neutrophils % 71.3% (39.0-77.0) Lymphocytes % 18.9% (15.0-51.0) Monocytes % 9.4% (0.0-11.0) Eosinophils % 0.0% (0.0-7.0) Basophils % 0.1% (0.0-2.0) Nucleated Red Blood Cells % 0.0/100WBC (0.0-0.0) Neutrophils # 5.410^3/ul (1.6-7.5) Lymphocytes # 1.410^3/ul (0.8-2.9) Monocytes # 0.710^3/ul (0.3-0.9) Eosinophils # 0.010^3/ul (0.0-0.5) Basophils # 0.010^3/ul (0.0-0.1) Nucleated Red Blood Cells # 0.010^3/ul (0.0-0.0) Sodium Level 137mmol/L (135-144) Potassium Level 4.1mmol/L (3.5-5.1) Chloride Level 94mmol/L (97-110) Carbon Dioxide Level 39mmol/L (21-31) Anion Gap 8 (8-16) Blood Urea Nitrogen 28mg/dl (7-20) Creatinine 0.47mg/dl (0.44-1.00) Glucose Level 111mg/dl (70-220) Calcium Level 7.5mg/dl (8.4-10.2) Phosphorus Level 2.8mg/dl (2.5-4.9) Magnesium Level 2.9mg/dl (1.7-2.5) ELISEO SHORE MD Jan 18, 2017 12:21
--- NOTE | 2017-01-18 12:37 | CONS ---
Date/Time of Note Date/Time of Note DATE: 01/18/17 TIME: 12:35 Assessment/Plan Assessment/Plan Additional Assessment/Plan Assessment recommendations; 1. Patient admitted for COPD exacerbation and acute bronchitis with interval improvement. 2. Chronic Respiratory failure with compensated respiratory acidosis. 3. Remote history of uterine cancer. Patient can be discharged home I would recommend discharging her on Medrol Dosepak with oral antibiotic either Zithromax or Levaquin for 5 days. Patient is to follow-up with her primary care physician. She does have home oxygen. Patient has tried BiPAP in the past and she told me that she just cannot use it. Consultation Date/Type/Reason Admit Date/Time Jan 17, 2017 at 02:44 Initial Consult Date 01/17/17 Type of Consultation: Pulmonary 24 HR Interval Summary Free Text/Dictation Patient condition is stable. Denies any wheezing, cough, chest pain, sputum production. Any fever, chills. General exam; elderly lady, awake alert currently in no distress. Exam/Review of Systems Vital Signs Vitals Vital Signs Date Time Temp Pulse Resp B/P Pulse Ox O2 Delivery O2 Flow Rate FiO2 01/18/17 12:12 87 01/18/17 11:39 98.4 20 115/60 94 01/18/17 11:11 Nasal Cannula 3.0 Intake and Output 01/17/17 01/17/17 01/18/17 15:00 23:00 07:00 Intake Total 400 ml 506 ml Balance 400 ml 506 ml Exam HEENT exam; supple neck, no JVD. No lymphadenopathy. Midline trachea. No thyromegaly. Patient is edentulous. Chest examination; diminished but clear breath sound bilaterally. No additional. S1-S2 audible, no murmurs. Regular rhythm. Abdomen examination; soft, nondistended. No organomegaly. Bowel sounds audible. Extremity exam is; no peripheral edema. LATHE SET UP OPERATOR examination; no focal deficit. Results Result Diagram: 01/18/17 0609 01/18/17 0609 Results 24 hrs Laboratory Tests Test 01/17/17 15:55 01/18/17 06:09 Urine Color LT. YELLOW Urine Clarity CLEAR Urine pH 6.0 Urine Specific [place] 1.025 Urine Ketones NEGATIVE Urine Nitrite NEGATIVE Urine Bilirubin NEGATIVE Urine Urobilinogen 0.2 E.U./dL Urine Leukocyte Esterase NEGATIVE Urine Hemoglobin NEGATIVE Urine Glucose NEGATIVE Urine Total Protein NEGATIVE White Blood Count 7.6 # Red Blood Count 3.40 L Hemoglobin 10.4 L Hematocrit 33.1 L Mean Corpuscular Volume 97.4 Mean Corpuscular Hemoglobin 30.6 Mean Corpuscular Hemoglobin Concent 31.4 L Red Cell Distribution Width 12.2 Platelet Count 239 Mean Platelet Volume 10.2 Neutrophils % 71.3 Lymphocytes % 18.9 Monocytes % 9.4 Eosinophils % 0.0 Basophils % 0.1 Nucleated Red Blood Cells % 0.0 Neutrophils # 5.4 Lymphocytes # 1.4 Monocytes # 0.7 Eosinophils # 0.0 Basophils # 0.0 Nucleated Red Blood Cells # 0.0 Sodium Level 137 Potassium Level 4.1 Chloride Level 94 L Carbon Dioxide Level 39 H Anion Gap 8 # Blood Urea Nitrogen 28 #H Creatinine 0.47 Glucose Level 111 Calcium Level 7.5 L Phosphorus Level 2.8 Magnesium Level 2.9 #H Medications Medications Current Medications Ondansetron HCl (Zofran Inj) 4 mg Q6H PRN IV NAUSEA AND/OR VOMITING; Start at 04:30 Aspirin (Aspirin) 81 mg DAILY PO Last administered on 01/18/17 08:13; Admin Dose 81 MG; Start 01/17/17 at 09:00 Acetaminophen (Tylenol Tab) 650 mg Q6H PRN PO PAIN LEVEL 1-3 OR FEVER; Start at 04:30 Heparin Sodium (Porcine) (Heparin (5000 Units/0.5 ml)) 5,000 unit Q12 SC Last administered on 01/18/17 08:20; Admin Dose 5,000 UNIT; Start 01/17/17 at 09:00 Ketorolac Tromethamine (Toradol) 30 mg Q6H IV Last administered on 01/18/17 10 :04; Admin Dose 30 MG; Start 01/17/17 at 04:30; Stop 01/20/17 at 04:29 Tiotropium [place] (Spiriva) 1 inh DAILY INH Last administered on 01/18/17 10: 04; Admin Dose 1 INH; Start 01/17/17 at 09:00 Montelukast Sodium (Singulair) 10 mg HS PO Last administered on 01/17/17 20:57 ; Admin Dose 10 MG; Start 01/17/17 at 21:00 Citalopram Hydrobromide (Celexa) 10 mg HS PO Last administered on 01/17/17 20: 57; Admin Dose 10 MG; Start 01/17/17 at 21:00 Salmeterol Xinafoate/ Fluticasone (Advair 250/50 Diskus) 1 inh BID INH Last administered on 01/18/17 10:04; Admin Dose 1 INH; Start 01/18/17 at 09:00 Docusate Sodium (Colace) 250 mg DAILY PO Last administered on 01/18/17 08:13; Admin Dose 250 MG; Start 01/18/17 at 09:00 ITZ COVARRUBIAS Jan 18, 2017 12:37
[2017-01-18] MEDS ORDERED: TIOT18CA INH ×2 (13:57→14:00)
[2017-01-18] MEDS ORDERED: LEVO500S PO (14:03)
[2017-01-18] MEDS ORDERED: MED4DP PO (14:03)
== END 2017-01-18 15:08 | disposition home or self-care (01) | DRG 192 ==
LOC: E/R 22:51 → TEL 01-17 02:44
PROVIDERS: ADMIT Internal Medicine; ATTEND Internal Medicine
DX: J44.1 Chronic obstructive pulmonary disease with (acute) exacerbation (principal); Z99.81 Dependence on supplemental oxygen; Z85.42 Personal history of malignant neoplasm of other parts of uterus; Z85.41 Personal history of malignant neoplasm of cervix uteri; Z90.710 Acquired absence of both cervix and uterus; F32.9 Major depressive disorder, single episode, unspecified; Z87.891 Personal history of nicotine dependence; E87.6 Hypokalemia; D64.9 Anemia, unspecified; Z79.52 Long term (current) use of systemic steroids; F41.9 Anxiety disorder, unspecified; F34.1 Dysthymic disorder; F41.8 Other specified anxiety disorders
CPT/HCPCS: 36415; 36600; 71010; 80048; 80053; 80306; 80307; 81003; 82533; 82803; 83690; 83735; 84100; 85025; 85378; 85610; 85730; 93005; 93306; 96374; 96375; J1644; J1885; J1956; J2405; J2930; J3475; J7512

== ENCOUNTER 2017-08-29 08:18 | Emergency (ER) | payer MEDICARE, OTHER ==
[~2017-08-29] VITALS: Ht 165.1 cm; Wt 45.5 kg
[~2017-08-29 08:18] MED LIST: ADV25050 INH; ASPI-664 PO; CITA10TA72 PO; LEVO500S PO; MED4DP PO; MONT10TA24 PO; TIOT18CA INH
[2017-08-29 08:30] VITALS: Ht 165.1 cm; Wt 45.5 kg
[2017-08-29] MEDS ORDERED: LEVALBUTEROL (NEB) 1.25 MG/0.5 ML AMP INH STA ×2 (08:31→11:17)
[2017-08-29] MEDS ORDERED: IPRATROPIUM (NEB) 0.5 MG/2.5 ML AMP INH STA (08:31)
[2017-08-29] MEDS ORDERED: METHYLPREDNISOLONE 125 MG INJ IV STA (08:31)
[2017-08-29] MEDS ORDERED: MAGNESIUM SULFATE 2 GM/50 ML 50 ML IVPB STA (08:31)
--- NOTE | 2017-08-29 09:09 | RADRPT ---
PROCEDURE: XR Chest. CLINICAL INDICATION: Asthma exacerbation TECHNIQUE: Frontal chest x-ray was obtained. COMPARISON: Chest x-ray January 16, 2017 FINDINGS: There is hyperinflation. No alveolar infiltrate or mass is seen. Heart is not enlarged. Mediastinum is not widened. No hilar mass is present. There is no effusion or pneumothorax. IMPRESSION: Hyperinflation compatible with asthma. No pneumonia. .Andrew Salmon MD, MD Date Time Electronically viewed and signed by .Andrew Salmon MD, on 08/29/2017 09:09 .A/
[2017-08-29 09:20] LABS: BASOPHIL # 0.1 10^3/ul (0.0-0.1); BASOPHILS % 0.5 % (0.0-2.0); EOSINOPHILS % 0.1 % (0.0-7.0); HEMATOCRIT 34.4 % (37.0-47.0); HEMOGLOBIN 11.1 g/dl (12.0-16.0); LYMPHOCYTES % 8.7 % (15.0-51.0); MEAN CORPUSCULAR HEMOGLOBIN 31.4 pg (29.0-33.0); MEAN CORPUSCULAR HGB CONC 32.3 g/dl (32.0-37.0); MEAN CORPUSCULAR VOLUME 97.5 fl (82.0-101.0); MEAN PLATELET VOLUME 9.9 fl (7.4-10.4); MONOCYTE # 0.7 10^3/ul (0.3-0.9); MONOCYTES % 6.4 % (0.0-11.0); NEUTROPHIL # 9.2 10^3/ul (1.6-7.5); NEUTROPHILS % 83.8 % (39.0-77.0); PLATELET COUNT 286 10^3/UL (140-415); RED BLOOD COUNT 3.53 10^6/ul (4.20-5.40); RED CELL DISTRIBUTION WIDTH 12.4 % (11.5-14.5)
[2017-08-29 09:48] LABS: CALCIUM 9.5 mg/dl (8.4-10.2); CREATININE 0.5 mg/dl (0.44-1.00); POTASSIUM 4.1 mmol/L (3.5-5.1)
[2017-08-29] MEDS ORDERED: SOD CHLORIDE 0.9% 500 ML IV STA (11:17)
[2017-08-29] MEDS ORDERED: LORAZEPAM 2 MG INJ IV ONE (11:30)
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
[2017-08-29] MEDS ORDERED: BUDE6HFA INHALATION (12:30)
[2017-08-29] MEDS ORDERED: THEO600T PO (12:31)
[2017-08-29] MEDS ORDERED: CHOL100062 PO (12:32)
[2017-08-29] MEDS ORDERED: LITH300T5 PO (12:34)
[2017-08-29] MEDS ORDERED: TIOT18CA INHALATION (12:35)
[2017-08-29] MEDS ORDERED: MONT10TA24 PO (12:36)
[2017-08-29] MEDS ORDERED: LAMO25TA PO (12:36)
[2017-08-29] MEDS ORDERED: PRED20TA PO (12:48)
[2017-08-29] MEDS ORDERED: LEVO750T25 PO (12:48)
[2017-08-29 13:00] VITALS: BP 139/84; PULSE 133; RESP 20; TEMP 98
== END 2017-08-29 13:55 | disposition home or self-care (01) ==
LOC: E/R 08:18
DX: J44.1 Chronic obstructive pulmonary disease with (acute) exacerbation (principal); Z79.82 Long term (current) use of aspirin; Z87.891 Personal history of nicotine dependence
CPT/HCPCS: 71010; 80048; 85025; 94640; 94644; 96374; 96375; 99285; J2060; J2930; J3475; J7040; 93005

== ENCOUNTER 2017-08-30 04:27 | Inpatient (IN) | payer MEDICARE, OTHER ==
[~2017-08-30] VITALS: Ht 160 cm; Wt 54.4 kg
[~2017-08-30 04:27] MED LIST changes: -ADV25050 INH; +BUDE6HFA INHALATION; +CHOL100062 PO; +LAMO25TA PO; -LEVO500S PO; +LEVO750T25 PO; +LITH300T5 PO; -MED4DP PO; +PRED20TA PO; +THEO600T PO; -TIOT18CA INH; +TIOT18CA INHALATION
[2017-08-30] MEDS ORDERED: LEVALBUTEROL (NEB) 1.25 MG/0.5 ML AMP INH STA (04:39)
[2017-08-30] MEDS ORDERED: SOD CHLORIDE 0.9% 500 ML IV STA (04:39)
[2017-08-30] MEDS ORDERED: METHYLPREDNISOLONE 125 MG INJ IV STA (04:39)
--- NOTE | 2017-08-30 04:58 | RADRPT ---
PROCEDURE: Chest. CLINICAL INDICATION: Shortness of breath. TECHNIQUE: Single frontal view of the chest was obtained. COMPARISON: 08/29/2017. FINDINGS: The cardiac silhouette is within normal limits. The aortic arch is calcified. The lungs are hyperin flated. There is a questionable nodular density within the right upper lobe measuring 1.5 cm. There is no focal consolidation, vascular congestion or pleural effusion. There is no pneumothorax. IMPRESSION: Questionable nodular density within the right upper lobe. Further evaluation by CT is recommended. Hyperinflation. Aortic atherosclerosis. .Bright Zelaya MD, MD Date Time Electronically viewed and signed by .Bright Zelaya MD, MD on 08/30/2017 04:58 .T/
[2017-08-30 05:30] LABS: BASOPHILS % 0.4 % (0.0-2.0); HEMATOCRIT 34.6 % (37.0-47.0); HEMOGLOBIN 11.4 g/dl (12.0-16.0); LYMPHOCYTES # 1.3 10^3/ul (0.8-2.9); MEAN CORPUSCULAR HEMOGLOBIN 31.7 pg (29.0-33.0); MEAN CORPUSCULAR HGB CONC 32.9 g/dl (32.0-37.0); MEAN CORPUSCULAR VOLUME 96.1 fl (82.0-101.0); MEAN PLATELET VOLUME 9.8 fl (7.4-10.4); MONOCYTE # 1.3 10^3/ul (0.3-0.9); MONOCYTES % 12.7 % (0.0-11.0); NEUTROPHIL # 7.8 10^3/ul (1.6-7.5); NEUTROPHILS % 74.5 % (39.0-77.0); PLATELET COUNT 310 10^3/UL (140-415); RED CELL DISTRIBUTION WIDTH 12.4 % (11.5-14.5); WHITE BLOOD COUNT 10.5 10^3/ul (4.8-10.8)
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
[2017-08-30 05:55] LABS: ANION GAP 16 (8-16); BLOOD UREA NITROGEN 14 mg/dl (7-20); CALCIUM 9.9 mg/dl (8.4-10.2); CARBON DIOXIDE 35 mmol/L (21-31); CHLORIDE 96 mmol/L (97-110); CREATININE 0.67 mg/dl (0.44-1.00); GLUCOSE 107 mg/dl (70-220); POTASSIUM 4.6 mmol/L (3.5-5.1); SODIUM 142 mmol/L (135-144)
[2017-08-30] MEDS ORDERED: ONDANSETRON 4 MG INJ IV PRN ×2 (06:00)
[2017-08-30] MEDS ORDERED: IPRATROPIUM (NEB) 0.5 MG/2.5 ML AMP NEB PRN (06:00)
[2017-08-30] MEDS ORDERED: ACETAMINOPHEN 325 MG TAB PO PRN ×2 (06:00)
[2017-08-30] MEDS ORDERED: morphine 2 MG INJ IV PRN (06:00)
[2017-08-30] MEDS ORDERED: NACL 0.9% 3 ML SYG IV SCH (06:00)
[2017-08-30 06:10] LABS: TROPONIN-I < 0.012 ng/ml (0.00-0.12)
--- NOTE | 2017-08-30 07:14 | HP ---
Date/Time of Note Date/Time of Note DATE: 08/30/17 TIME: 07:07 Assessment/Plan VTE Prophylaxis VTE Prophylaxis Intervention: heparin Assessment/Plan Assessment/Plan ASSESSMENT 66-year-old female with a history of COPD on home oxygen, extensive smoking history, uterine and cervical cancer at age of 34 status post surgery, arthritis and depression presents with shortness of breath most likely secondary to COPD exacerbation. PLAN Supplemental oxygen, bronchodilators, steroid CT chest to evaluate for the chest x-ray finding of questionable nodular density that was noted on the right upper lobe Continue home medication with adjustment as needed HPI/ROS Admit Date/Time Admit Date/Time Hx of Present Illness The patient is a 66-year-old female with a history of COPD on home oxygen, uterine and cervical cancer at age of 34 status post surgery, arthritis and depression who presented to the emergency department complaining of shortness of breath. She actually came to our ER yesterday as well for shortness of breath but it seems like she has left without properly evaluated. She said her shortness of breath has been progressively getting worse for the past week or so. She also complains of generalized weakness. She has a heavy smoking history , but she quit about 3 years ago. She was last admitted here in December of this year for generalized weakness and shortness of breath. When she presented to the ER this time, she was tachycardic with a heart rate of 128. Chest x-ray shows a questionable nodular density in the right upper lobe. Labs shows bicarb of 35 and hemoglobin of 11.4 otherwise CBC and BMP within acceptable range. PMH/Family/Social Social History Smoking Status: Former smoker Exam/Review of Systems Vital Signs Vitals Vital Signs Date Time Temp Pulse Resp B/P Pulse Ox O2 Delivery O2 Flow Rate FiO2 08/30/17 05:49 120 30 131/96 Non Rebreather 08/30/17 04:49 3 08/30/17 04:45 95 30 08/30/17 04:36 98.5 Exam Constitutional: alert, oriented Head: atraumatic, normocephalic Eyes: EOMI, PERRL Respiratory: diminished breath sounds Cardiovascular: other (Tachycardic with regular rhythm) Gastrointestinal: soft Extremities: normal pulses Labs Result Diagram: 08/30/1750708/30/17507 Medications Medications Current Medications Lorazepam (Ativan) 0.5 mg Q8H PRN PO ANXIETY; Start 08/30/17 at 06:00 Ondansetron HCl (Zofran Inj) 4 mg Q6H PRN IV NAUSEA AND/OR VOMITING; Start 07/07 at 06:00 Acetaminophen (Tylenol Tab) 650 mg Q6H PRN PO PAIN LEVEL 1-3 OR FEVER; Start 08/30/17 at 06:00 Morphine Sulfate (morphine) 2 mg Q4H PRN IV PAIN LEVEL 7-10; Start 08/30/17 at 06:00 Heparin Sodium (Porcine) (Heparin (5000 Units/0.5 ml)) 5,000 unit Q12 SC ; Start 08/30/17 at 09:00 Aspirin (Halfprin) 81 mg DAILY PO ; Start 08/30/17 at 09:00 Cholecalciferol (Vitamin D) 1,000 unit DAILY PO ; Start 08/30/17 at 09:00 Citalopram Hydrobromide (Celexa) 10 mg HS PO ; Start 08/30/17 at 21:00 Lamotrigine (Lamictal) 25 mg TID PO ; Start 08/30/17 at 09:00 [place] Carbonate ([place] Carbonate) 300 mg QHS PO ; Start 08/30/17 at 21:00 Montelukast Sodium (Singulair) 10 mg QHS PO ; Start 08/30/17 at 21:00 Theophylline (Ilir-Dur) 300 mg BID PO ; Start 08/30/17 at 09:00 Miscellaneous Information 2 puff BID INHALATION ; Start 08/30/17 at 09:00; Status UNV Methylprednisolone Sodium Succinate (Solu-Medrol) 80 mg Q12 IV ; Start at 09:00 Tiotropium [place] (Spiriva) 1 inh DAILY INH ; Start 08/30/17 at 09:00 DIONISIO LORA MD Aug 30, 2017 07:14
[2017-08-30 07:29] LABS: AADO2 Arterial 88.9 mmHg (7.0-24.0); Allen Test ACCEPTAB; Arterial Base Excess 4.6 mmol/L (-3.0-3); Arterial COHb 0.3 % (0.0-3.0); Arterial Fraction of Oxyhgb 91.6 % (93.0-99.0); Arterial HCO3 30.7 mmol/L (22.0-26.0); Arterial MetHb 0.1 % (0.0-1.5); Arterial Total Hemglobin 12.1 g/dl (12.0-18.0); MODE NASAL CANNULA
[2017-08-30] MEDS ORDERED: SOD CHLORIDE 0.9% 100 ML ONE (07:35)
[2017-08-30] MEDS ORDERED: IOHEXOL 300MG/ML 150 ML BTL ONE (07:35)
--- NOTE | 2017-08-30 07:53 | RADRPT ---
PROCEDURE: CT Chest with contrast. CLINICAL INDICATION: Abnormal chest x-ray. Pulmonary nodule. Dyspnea. TECHNIQUE: CT scan of the chest with contrast was performed on a multidetector high-resolution CT scanner. The patient was scanned following the uncomplicated intravenous administration of 100 cc o f Omnipaque-300 contrast. Coronal and sagittal reformatted images were obtained from the axial [facility] e images. DICOM images are available. CTDI 3.39 mGy and DLP 136.73 mGy-cm. One or more of the following dose reduction techniques were used: - Automated exposure control. - Adjustment of the mA and/or kV according to patient size. - Use of iterative reconstruction technique. COMPARISON: Chest x-ray 08/30/2017 FINDINGS: Lungs: The questionable nodular density seen in the right upper lobe on the prior chest x-ray is con firmed on this current CT scan of the chest. A small irregular 18 mm spiculated nodular density is s een along the posterolateral periphery of the right upper lung. Neoplasm is within the differential. PET scan is recommended for further assessment. Severe bullous emphysematous COPD changes are seen scattered throughout the lungs. No infiltrate, effusion, edema, or pneumothorax is present. The cent ral tracheobronchial tree is clear. Mediastinum: Normal. Cardiovascular: Heart size is normal with a small anterior inferior pericardial effusion. Lymph nodes: No adenopathy. Musculoskeletal: Normal. Upper abdomen: Normal. IMPRESSION: 1. Small spiculated nodule in the posterolateral right upper lung. Further evaluation is warranted. 2. Benign chronic senescent changes seen elsewhere throughout the chest. 3. Severe advanced bullous emphysematous COPD changes. RPTAT: HMJB .Reynold Ji MD, MD Date Time Electronically viewed and signed by .Reynold Ji MD, MD on 08/30/2017 07:52 .B/
[2017-08-30] MEDS: THEOPHYLLINE (SR) 300 MG TAB PO SCH ×2 (09:00→22:09)
[2017-08-30] MEDS: LAMOTRIGINE 25 MG TAB PO SCH ×3 (09:00→20:44)
[2017-08-30] MEDS: LORAZEPAM 0.5 MG TAB PO PRN (10:43)
[2017-08-30] MEDS: METHYLPREDNISOLONE 125 MG INJ IV SCH ×2 (10:44→20:39)
[2017-08-30] MEDS: HEPARIN 5,000 UNIT/0.5 ML VIAL SC SCH ×2 (10:55→20:39)
[2017-08-30 11:00] VITALS: TEMP 98.5
[2017-08-30] MEDS: ASPIRIN (EC) 81 MG TAB PO SCH (11:26)
[2017-08-30] MEDS: CHOLECALCIFEROL 1,000 UNIT TAB PO SCH (11:26)
[2017-08-30] MEDS: TIOTROPIUM 18 MCG CAPSULE INHA DEV INH SCH (11:27)
--- NOTE | 2017-08-30 13:57 | EN ---
Date/Time of Note Date/Time of Note DATE: 08/30/17 TIME: 13:56 ER Progress Note This patient was signed out to me. Is observing him and his potassium returned with repeated value that was actually higher. He has end-stage renal disease. I gave him 10 mg of insulin 10 mg of dextrose and ordered calcium gluconate. We also called his primary care doctor in dialysis Dr. levy came down to begin dialysis in the emergency room immediately which is already got begun. The patient is otherwise stable. ELISEO NAVA DO Aug 30, 2017 13:57
[2017-08-30] MEDS: SALMETEROL/FLUTICASONE 250/50 INHA INH SCH ×2 (16:44→23:38)
[2017-08-30 16:51] VITALS: Ht 160 cm; Wt 54.4 kg
[2017-08-30 16:59] VITALS: BP 165/88; PULSE 116; RESP 16
[2017-08-30 19:06] VITALS: PULSE 116
[2017-08-30 19:54] VITALS: BP 149/86; RESP 18
[2017-08-30 20:22] VITALS: PULSE 118
[2017-08-30] MEDS ORDERED: CITALOPRAM 20 MG TAB PO SCH (21:00)
[2017-08-30] MEDS ORDERED: MONTELUKAST 10 MG TAB PO SCH (21:00)
[2017-08-30] MEDS ORDERED: LITHIUM CARBONATE 300 MG CAP PO SCH (21:00)
[2017-08-31] VITALS (8 sets, daily range): BP systolic 115–138; BP diastolic 66–90; PULSE 116–128; RESP 17–20
[2017-08-31] MEDS: LORAZEPAM 0.5 MG TAB PO PRN (01:53)
[2017-08-31 06:43] LABS: BASOPHILS % 0.1 % (0.0-2.0); HEMOGLOBIN 12.1 g/dl (12.0-16.0); LYMPHOCYTES # 1.2 10^3/ul (0.8-2.9); LYMPHOCYTES % 10.2 % (15.0-51.0); MEAN CORPUSCULAR HEMOGLOBIN 31.6 pg (29.0-33.0); MEAN CORPUSCULAR HGB CONC 32.7 g/dl (32.0-37.0); MEAN CORPUSCULAR VOLUME 96.6 fl (82.0-101.0); MONOCYTE # 0.9 10^3/ul (0.3-0.9); MONOCYTES % 7.4 % (0.0-11.0); NEUTROPHIL # 9.7 10^3/ul (1.6-7.5); NEUTROPHILS % 81.8 % (39.0-77.0); PLATELET COUNT 368 10^3/UL (140-415); RED BLOOD COUNT 3.83 10^6/ul (4.20-5.40); RED CELL DISTRIBUTION WIDTH 12.7 % (11.5-14.5); WHITE BLOOD COUNT 11.8 10^3/ul (4.8-10.8)
[2017-08-31 06:50] LABS: ALBUMIN 4.4 g/dl (3.3-4.9); ALBUMIN/GLOBULIN RATIO 1.22; BILIRUBIN,INDIRECT 0.1 mg/dl (0-1.1); BILIRUBIN,TOTAL 0.1 mg/dl (0.2-1.3); CALCIUM 9.9 mg/dl (8.4-10.2); CREATININE 0.64 mg/dl (0.44-1.00); POTASSIUM 3.9 mmol/L (3.5-5.1)
[2017-08-31] MEDS: SALMETEROL/FLUTICASONE 250/50 INHA INH SCH (08:51)
[2017-08-31] MEDS: TIOTROPIUM 18 MCG CAPSULE INHA DEV INH SCH (08:52)
[2017-08-31] MEDS: METHYLPREDNISOLONE 125 MG INJ IV SCH (08:52)
[2017-08-31] MEDS: CHOLECALCIFEROL 1,000 UNIT TAB PO SCH (08:58)
[2017-08-31] MEDS: THEOPHYLLINE (SR) 300 MG TAB PO SCH (08:58)
[2017-08-31] MEDS: ASPIRIN (EC) 81 MG TAB PO SCH (08:58)
[2017-08-31] MEDS: LAMOTRIGINE 25 MG TAB PO SCH (08:58)
[2017-08-31] MEDS: HEPARIN 5,000 UNIT/0.5 ML VIAL SC SCH (09:13)
--- NOTE | 2017-08-31 13:39 | DS ---
Date/Time of Note Date/Time of Note DATE: 08/31/17 TIME: 13:36 Discharge Summary Admission/Discharge Info Admit Date/Time Aug 30, 2017 at 05:45 Discharge Date/Time Aug 31, 2017 at 12:40 Discharge Diagnosis COPD exacerbation; right lung 18 mm nodule; anxiety disorder; obstructive sleep apnea; Patient Condition: Fair Consults Pulmonary-Dr. Pereyra Procedures CT scan chest Hx of Present Illness The patient is a 66-year-old female with a history of COPD on home oxygen, uterine and cervical cancer at age of 34 status post surgery, arthritis and depression who presented to the emergency department complaining of shortness of breath. She actually came to our ER yesterday as well for shortness of breath but it seems like she has left without properly evaluated. She said her shortness of breath has been progressively getting worse for the past week or so. She also complains of generalized weakness. She has a heavy smoking history , but she quit about 3 years ago. She was last admitted here in December of this year for generalized weakness and shortness of breath. When she presented to the ER this time, she was tachycardic with a heart rate of 128. Chest x-ray shows a questionable nodular density in the right upper lobe. Labs shows bicarb of 35 and hemoglobin of 11.4 otherwise CBC and BMP within acceptable range. Hospital Course 66-year-old female with oxygen dependent advanced COPD who also with obstructive sleep apnea. She came in for exacerbation and on chest x-ray was found to have a lung nodule that had not been identified on the 2 prior chest x- rays at this same facility. CT scanning is raising a question. Patient however decided that she did not want to stay in the hospital and signed out AGAINST MEDICAL ADVICE prior to her having a chance to perform further evaluation. Home Meds Active Scripts Levofloxacin* (Levaquin*) 750 Mg Tablet, 750 MG PO DAILY for 5 Days, TAB Prov:DANIELITO DALE MD 08/29/17 Prednisone* (Prednisone*) 20 Mg Tab, 40 MG PO DAILY for 4 Days, TAB Prov:DANIELITO DALE MD 08/29/17 Reported Medications Lamotrigine* (Lamotrigine*) 25 Mg Tablet, 25 MG PO TID, TAB 08/29/17 Montelukast Sodium* (Montelukast Sodium*) 10 Mg Tablet, 10 MG PO QHS, #30 TAB 08/29/17 Tiotropium [place]* (Spiriva*) 18 Mcg Cap.w.dev, 1 CAP INHALATION DAILY, #30 CAP 08/29/17 [place] Carbonate* ([place] Carbonate*) 300 Mg Tablet, 300 MG PO QHS, TAB 08/29/17 Cholecalciferol* (Vitamin D3*) 1,000 Unit Tablet, 1000 UNIT PO DAILY, TAB 08/29/17 Theophylline Anhydrous* (Theophylline* ER) 600 Mg Tablet.sa, 300 MG PO BID, TAB.SA 08/29/17 Budesonide-Formoterol Fumarate* (Symbicort*) 160-4.5 Hfa.aer.ad, 2 PUFF INHALATION BID, #1 EACH 08/29/17 Citalopram Hydrobromide* (Celexa*) 10 Mg Tablet, 10 MG PO HS, #30 TAB 01/17/17 Aspirin* (Aspirin* EC) 81 Mg Tablet.dr, 81 MG PO DAILY, TAB 01/16/17 Discontinued Scripts Methylprednisolone* (Medrol* DOSE PACK) 4 Mg/Dose-Pack Tab.ds.pk, 4 MG PO . DIRECTED for 5 Days, PACKET Prov:ANDREAS EDUARDO MD 01/18/17 Levofloxacin (Levofloxacin) 500 Mg/20 Ml Solution, 500 MG PO DAILY for 5 Days, ML Prov:ANDREAS EDUARDO MD 01/18/17 Tiotropium [place]* (Spiriva*) 18 Mcg Cap.w.dev, 1 INH INH DAILY for 30 Days, 2 Refills Prov:ANDREAS EDUARDO MD 01/18/17 Salmeterol Xinaf/Fluticasone* (Advair*) 250-50 Diskus Inhaler, 1 INH INH BID for 30 Days, 2 Refills Prov:ANDREAS EDUARDO MD 01/18/17 Montelukast Sodium* (Montelukast Sodium*) 10 Mg Tablet, 10 MG PO HS for 30 Days , TAB 4 Refills For breathing maintenance Prov:ANDREAS EDUARDO MD 01/18/17 Primary Care Provider Andreas Eduardo MD Time spent on discharge: > 30 minutes Pending Labs Laboratory Tests Test 08/31/17 05:43 White Blood Count 11.810^3/ul (4.8-10.8) Red Blood Count 3.8310^6/ul (4.20-5.40) Hemoglobin 12.1g/dl (12.0-16.0) Hematocrit 37.0% (37.0-47.0) Mean Corpuscular Volume 96.6fl (82.0-101.0) Mean Corpuscular Hemoglobin 31.6pg (29.0-33.0) Mean Corpuscular Hemoglobin Concent 32.7g/dl (32.0-37.0) Red Cell Distribution Width 12.7% (11.5-14.5) Platelet Count 64535^3/UL (140-415) Mean Platelet Volume 10.0fl (7.4-10.4) Neutrophils % 81.8% (39.0-77.0) Lymphocytes % 10.2% (15.0-51.0) Monocytes % 7.4% (0.0-11.0) Eosinophils % 0.0% (0.0-7.0) Basophils % 0.1% (0.0-2.0) Nucleated Red Blood Cells % 0.0/100WBC (0.0-0.0) Neutrophils # 9.710^3/ul (1.6-7.5) Lymphocytes # 1.210^3/ul (0.8-2.9) Monocytes # 0.910^3/ul (0.3-0.9) Eosinophils # 0.010^3/ul (0.0-0.5) Basophils # 0.010^3/ul (0.0-0.1) Nucleated Red Blood Cells # 0.010^3/ul (0.0-0.0) Sodium Level 141mmol/L (135-144) Potassium Level 3.9mmol/L (3.5-5.1) Chloride Level 96mmol/L (97-110) Carbon Dioxide Level 34mmol/L (21-31) Anion Gap 15 (8-16) Blood Urea Nitrogen 17mg/dl (7-20) Creatinine 0.64mg/dl (0.44-1.00) Glucose Level 189mg/dl (70-220) Calcium Level 9.9mg/dl (8.4-10.2) Total Bilirubin 0.1mg/dl (0.2-1.3) Direct Bilirubin 0.00mg/dl (0.00-0.20) Indirect Bilirubin 0.1mg/dl (0-1.1) Aspartate Amino Transf (AST/SGOT) 63IU/L (15-46) Alanine Aminotransferase (ALT/SGPT) 33IU/L (13-69) Alkaline Phosphatase 90IU/L (42-121) Total Protein 8.0g/dl (6.1-8.1) Albumin 4.4g/dl (3.3-4.9) Globulin 3.60g/dl (1.3-3.2) Albumin/Globulin Ratio 1.22 Copies To: CC: [facility]YRA [facility], [facility] ANDREAS EDUARDO MD Aug 31, 2017 13:39
== END 2017-08-31 12:40 | disposition left against medical advice (07) | DRG 192 ==
LOC: E/R 04:27 → TEL 05:45
PROVIDERS: ADMIT Internal Medicine; ATTEND Internal Medicine
DX: J44.1 Chronic obstructive pulmonary disease with (acute) exacerbation (principal); Z99.81 Dependence on supplemental oxygen; F41.9 Anxiety disorder, unspecified; G47.33 Obstructive sleep apnea (adult) (pediatric)
CPT/HCPCS: 36600; 71010; 71260; 80048; 80053; 82803; 83036; 84484; 85025; 93005; 94644; 96372; 96374; 96375; 97162; J1644; J2930; J7040; Q9967

== ENCOUNTER 2017-11-09 13:37 | Inpatient (IN) | END 2017-11-17 12:57 | DRG 190 ==